=== PATIENT | female | born 1945 | race Hispanic/Latino ===

== ENCOUNTER 2018-01-25 01:19 | Inpatient (IN) | payer MEDICARE ==
[~2018-01-25] VITALS: Ht 154.9 cm; Wt 69.2 kg
[2018-01-25] VITALS (10 sets, daily range): BP systolic 93–141; BP diastolic 59–71
[~2018-01-25 01:19] MED LIST: AMLODIPINE BESYL5 MG PO; LEVOCETIRIZINE D5 MG PO
[2018-01-25] MEDS ORDERED: ONDANSETRON HCL 4 MG ORAL DISINTEGRATING TAB ONE (01:22)
[2018-01-25] MEDS ORDERED: MORPHINE SULFATE 2 MG/ML SYR IV STA ×2 (01:22→02:57)
[2018-01-25] MEDS ORDERED: ONDANSETRON HCL 4 MG ORAL DISINTEGRATING TAB PO ONE (01:30)
[2018-01-25] MEDS ORDERED: SODIUM CHLORIDE 0.9% 1000ML 1,000 ML IV ONE (01:45)
[2018-01-25 01:46] LABS: BASOPHILS # (AUTO) 0.1 (0.0-0.1); BASOPHILS % 0.7 % (0.0-1.0); EOSINOPHILS # (AUTO) 0.1 (0.0-0.4); EOSINOPHILS % 0.9 % (0.0-6.0); HEMATOCRIT 38.7 % (34.2-44.1); HEMOGLOBIN 12.8 g/dL (12.0-16.0); LYMPHOCYTES # (AUTO) 2.1 (1.0-3.2); LYMPHOCYTES % 15.8 % (18.0-39.1); MEAN CORPUSCULAR HEMOGLOBIN 28.1 pg (28-32); MEAN CORPUSCULAR HGB CONC 33.1 g/dL (31-35); MEAN CORPUSCULAR VOLUME 85.1 fL (81-99); MONOCYTES # (AUTO) 0.8 (0.2-0.8); NEUTROPHILS # (AUTO) 10.1 (2.1-6.9); NEUTROPHILS % 76.1 % (38.7-80.0); PLATELET COUNT 286 x10e3/uL (140-360); RED BLOOD COUNT 4.55 x10e6/uL (3.6-5.1); RED CELL DISTRIBUTION WIDTH 13.8 % (11.7-14.4)
[2018-01-25 01:50] LABS: CLARITY,URINE CLEAR (CLEAR); COLOR,URINE YELLOW (YELLOW)
[2018-01-25 01:51] LABS: BILIRUBIN,URINE NEGATIVE (NEGATIVE); KETONES,URINE NEGATIVE (NEGATIVE); LEUKOCYTE ESTERASE ,URINE 1+ (NEGATIVE); NITRITE,URINE NEGATIVE (NEGATIVE); PROTEIN,URINE DIPSTICK TRACE (NEGATIVE); URINE UROBILINOGEN 0.2 mg/dL (0.2 - 1)
[2018-01-25 01:54] LABS: RBC,URINE 0-5 /HPF (0-5)
[2018-01-25 01:55] LABS: BACTERIA,URINE RARE /HPF; EPITHELIAL CELLS,URINE FEW /LPF
[2018-01-25 02:04] LABS: ALANINE AMINOTRANSFERASE 18 IU/L (0-55); ALBUMIN 3.6 g/dL (3.5-5.0); ALBUMIN/GLOBULIN RATIO 0.8 (0.8-2.0); ALKALINE PHOSPHATASE 88 IU/L (40-150); AMYLASE 122 U/L (25-125); ANION GAP 15.3 mmol/L (8-16); BLOOD UREA NITROGEN 16 mg/dL (7-26); BUN/CREATININE RATIO 24 (6-25); CALCIUM 9.6 mg/dL (8.4-10.2); CARBON DIOXIDE 24 mmol/L (22-29); CHLORIDE 101 mmol/L (98-107); CREATININE, SERUM 0.68 mg/dL (0.57-1.11); EST GLOMERULAR FILTRATION RATE > 60 ML/MIN (60-); GLUCOSE 139 mg/dL (74-118); LIPASE 143 U/L (8-78); POTASSIUM 3.3 mmol/L (3.5-5.1); SODIUM 137 mmol/L (136-145)
[2018-01-25 02:11] LABS: CREATINE KINASE 35 IU/L (29-168)
[2018-01-25] MEDS ORDERED: SODIUM CHLORIDE 0.9% 50ML 50 ML ONE (02:13)
[2018-01-25] MEDS ORDERED: IOPAMIDOL 370 MG/ML 200 ML INFUS..BTL INJ ONE (02:14)
--- NOTE | 2018-01-25 02:52 | Diagnostic Imaging Report ---
EXAM: CT Abdomen and Pelvis WITH contrast INDICATION: Abdominal pain, vomiting COMPARISON: None. TECHNIQUE: Abdomen and pelvis were scanned utilizing a multidetector helical scanner from the lung base to the pubic symphysis after administration of IV contrast. Coronal and sagittal reformations were obtained. Routine protocol was performed. Scan was performed when during portal venous phase. IV CONTRAST: 100 mL of Isovue-300 ORAL CONTRAST: Water RADIATION DOSE: Total DLP: 452.32 mGy*cm Estimated effective dose: (DLP x 0.015 x size factor) mSv COMPLICATIONS: None FINDINGS: LINES and TUBES: None. LOWER THORAX: Unremarkable HEPATOBILIARY: No focal hepatic lesions. No biliary ductal dilation. GALLBLADDER: No radio-opaque stones or sludge. No wall thickening. SPLEEN: No splenomegaly. PANCREAS: No focal masses or ductal dilatation. ADRENALS: No adrenal nodules KIDNEYS/URETERS: Kidneys enhance symmetrically. Right-sided hydroureteronephrosis No cystic or solid mass lesions. Few small stones visualized in the region of the distal right ureter and right UVJ best seen on series 2, image 72 through 74. The largest stone is probably 3 mm in diameter GI TRACT: No abnormal distention, wall thickening, or evidence of bowel obstruction. Appendix is normal. PELVIC ORGANS/BLADDER: Unremarkable. LYMPH NODES: No lymphadenopathy. VESSELS: Unremarkable. PERITONEUM / RETROPERITONEUM: No free air or fluid. BONES: Unremarkable. SOFT TISSUES: Unremarkable. IMPRESSION: 1. Distal right ureteral and UVJ stones measuring 3 mm in diameter the largest results in mild hydroureteronephrosis 2. Otherwise, unremarkable study. Signed by: Dr. Gerardo Jeffery M.D. on 01/25/2018 2:48 AM
[2018-01-25] MEDS ORDERED: MORPHINE SULFATE 2 MG/ML SYR ONE (03:00)
[2018-01-25] MEDS ORDERED: ONDANSETRON HCL INJ 2 MG/ML VIAL IV PRN (03:00)
--- OUTSIDE RECORDS SUMMARY | 2018-01-25 03:10 | XMS REPORT ---
Author Author [facility] Address Unknown Phone Unavailable Care Team Providers Care Ledger Clerk Name Role Phone MELLY KATZ Unavailable Unavailable Problems This patient has no known problems. Allergies, Adverse Reactions, Alerts This patient has no known allergies or adverse reactions. Medications This patient has no known medications. Results Test Description Test Time Test Comments Text Results Atomic Results Result Comments CT ABDOMEN/PELVIS W [place] [address] Patient Name: ALEXANDRE SIDDIQUI MR #: [id number] : 1945 Age/Sex: 72/F Req #: [id number] Adm Physician: Ordered by: MELLY KATZ MD Report #: [id number] Location: ER Room/Bed: ___ Procedure: [id number] CT/CT ABDOMEN/PELVIS W Exam Date: 01/25/18 Exam Time: 223 REPORT STATUS: Signed EXAM: CT Abdomen and Pelvis WITH contrast INDICATION: Abdominal pain, vomiting COMPARISON: None. TECHNIQUE: Abdomen and pelvis were scanned utilizing a multidetector helical scanner from the lung base to the pubic symphysis after administration of IV contrast. Coronal and sagittal reformations were obtained. Routine protocol was performed. Scan was performed when during portal venous phase. IV CONTRAST: 100 mL of Isovue-300 ORAL CONTRAST: Water RADIATION DOSE: Total DLP: 452.32 mGy*cm Estimated effective dose: (DLP x 0.015 x size factor) mSv COMPLICATIONS: None FINDINGS: LINES and TUBES: None. LOWER THORAX: Unremarkable HEPATOBILIARY: No focal hepatic lesions. No biliary ductal dilation. GALLBLADDER: No radio-opaque stones or sludge. No wall thickening. SPLEEN: No splenomegaly. PANCREAS: No focal masses or ductal dilatation. ADRENALS: No adrenal nodules KIDNEYS/URETERS: Kidneys enhance symmetrically. Right-sided hydroureteronephrosis No cystic or solid mass lesions. Few small stones visualized in the region of the distal right ureter and right UVJ best seen on series 2, image 72 through 74. The largest stone is probably 3 mm in diameter GI TRACT: No abnormal distention, wall thickening, or evidence of bowel obstruction. Appendix is normal. PELVIC ORGANS/BLADDER: Unremarkable. LYMPH NODES: No lymphadenopathy. VESSELS: Unremarkable. PERITONEUM / RETROPERITONEUM: No free air or fluid. BONES: Unremarkable. SOFT TISSUES: Unremarkable. IMPRESSION: 1. Distal right ureteral and UVJ stones measuring 3 mm in diameter the largest results in mild hydroureteronephrosis 2. Otherwise, unremarkable study. Signed by: Dr. Gerardo Jeffery M.D. on 01/25/2018 2:48 AM Dictated By: GERARDO EDMOND MD 7 COPY TO: MELLY KATZ MD
[2018-01-25] MEDS ORDERED: ALENDRONATE SOD70 MG PO (03:14)
[2018-01-25] MEDS ORDERED: NEXIUM20 MG PO (03:15)
[2018-01-25] MEDS: CEFTRIAXONE SOD 1 GM VIAL IV SCH (03:25)
[2018-01-25] MEDS: SODIUM CHLORIDE 0.9% 1000ML 1,000 ML IV SCH ×3 (03:25→20:00)
[2018-01-25] MEDS: MORPHINE SULFATE 2 MG/ML SYR IV PRN ×2 (07:29→14:24)
[2018-01-25] MEDS: LORATADINE 10 MG TAB PO SCH (08:15)
[2018-01-25] MEDS: AMLODIPINE BESYLATE 5 MG TAB PO SCH (08:15)
[2018-01-25] MEDS ORDERED: PANTOPRAZOLE SOD 40 MG TABEC PO SCH (09:00)
[2018-01-25] MEDS ORDERED: NON-FORMULARY MEDICATION (Levocetirizine Dihydrochloride 5 MG) PO SCH (09:00)
[2018-01-25] MEDS ORDERED: POTASSIUM CHLORIDE 20 MEQ TAB CR PO NR (11:00)
[2018-01-25] MEDS ORDERED: TRAMADOL HCL 50 MG TAB PO PRN (17:30)
[2018-01-25] MEDS: TAMSULOSIN HCL 0.4 MG CAP PO SCH (20:29)
[2018-01-25] MEDS: GABAPENTIN 300 MG CAP PO SCH (20:29)
[2018-01-26] VITALS (7 sets, daily range): BP systolic 97–135; BP diastolic 56–67
[2018-01-26] MEDS: CEFTRIAXONE SOD 1 GM VIAL IV SCH (02:53)
[2018-01-26] MEDS: SODIUM CHLORIDE 0.9% 1000ML 1,000 ML IV SCH ×2 (05:06→17:06)
[2018-01-26 06:12] LABS: BASOPHILS # (AUTO) 0.1 (0.0-0.1); BASOPHILS % 0.5 % (0.0-1.0); EOSINOPHILS # (AUTO) 0.2 (0.0-0.4); EOSINOPHILS % 1.7 % (0.0-6.0); MEAN CORPUSCULAR HEMOGLOBIN 28.6 pg (28-32); MEAN CORPUSCULAR HGB CONC 33.3 g/dL (31-35); MEAN CORPUSCULAR VOLUME 85.7 fL (81-99); MONOCYTES # (AUTO) 0.8 (0.2-0.8); MONOCYTES % 8.1 % (4.4-11.3); NEUTROPHILS % 69.4 % (38.7-80.0); PLATELET COUNT 232 x10e3/uL (140-360); RED BLOOD COUNT 3.85 x10e6/uL (3.6-5.1); RED CELL DISTRIBUTION WIDTH 14.2 % (11.7-14.4)
[2018-01-26 06:32] LABS: ALANINE AMINOTRANSFERASE 13 IU/L (0-55); ALBUMIN 2.7 g/dL (3.5-5.0); ALBUMIN/GLOBULIN RATIO 0.8 (0.8-2.0); ALKALINE PHOSPHATASE 54 IU/L (40-150); ANION GAP 9.4 mmol/L (8-16); BLOOD UREA NITROGEN 13 mg/dL (7-26); BUN/CREATININE RATIO 18 (6-25); CALCIUM 7.8 mg/dL (8.4-10.2); CARBON DIOXIDE 25 mmol/L (22-29); CHLORIDE 106 mmol/L (98-107); CREATININE, SERUM 0.73 mg/dL (0.57-1.11); EST GLOMERULAR FILTRATION RATE > 60 ML/MIN (60-); GLUCOSE 105 mg/dL (74-118); POTASSIUM 3.4 mmol/L (3.5-5.1); SODIUM 137 mmol/L (136-145)
[2018-01-26 06:34] LABS: AMYLASE 58 U/L (25-125); LIPASE 14 U/L (8-78)
[2018-01-26] MEDS: AMLODIPINE BESYLATE 5 MG TAB PO SCH (07:29)
[2018-01-26] MEDS: GABAPENTIN 300 MG CAP PO SCH ×3 (08:30→20:06)
[2018-01-26] MEDS: LORATADINE 10 MG TAB PO SCH (08:30)
[2018-01-26] MEDS: MORPHINE SULFATE 2 MG/ML SYR IV PRN ×2 (10:45→16:38)
[2018-01-26] MEDS ORDERED: POTASSIUM CHLORIDE 20 MEQ TAB CR PO NR (14:45)
[2018-01-26] MEDS: TAMSULOSIN HCL 0.4 MG CAP PO SCH (20:06)
--- NOTE | 2018-01-26 22:28 | Consultation ---
DATE OF CONSULTATION: January 25, 2018 REASON FOR CONSULTATION: Right flank pain, right lower quadrant pain, bladder spasms, frequency and urgency. HISTORY: A 72-year-old female who started 24 hours prior to admission having right flank pain with vomiting and supposedly chills and fever. The patient stated that this started suddenly and she did not notice any evidence of any hematuria or foul-smelling urine. She stated that she had travelled outside of the country to [facility] and had returned within the last week. PAST MEDICAL HISTORY: No surgery. ALLERGIES: NO KNOWN ALLERGIES TO MEDICATION. SOCIAL HISTORY: She does not use any tobacco. She is not , but has had 2 children in the past. CT SCAN: The CT scan shows mild hydroureter all the way down to the ureterovesical junction where there is a 3-mm stone. LAB WORK: Urine is essentially negative with microscopic hematuria and pyuria. IMPRESSION: Right distal ureteral calculi. RECOMMENDATIONS: Patient continues to use IV drugs. Today, states that her pain is extremely severe. She has only 3-mm stone. She should be home already, but her symptomatology is more than I would have expected with just a little stone. She had been on Flomax, gabapentin, tramadol, Rocephin and morphine. Currently, I have told the patient that with this amount of pain that has continued despite of appropriate medication, we should do a cystoscopy tomorrow together with a possible ureteroscopy and stone extraction and placement of double J. I discussed all these with her in presence of a nurse. We will be scheduling her tomorrow and we will see what we can do as far as removing the stone or placing a double J. Job#: [id number]
[2018-01-27] MEDS: SODIUM CHLORIDE 0.9% 1000ML 1,000 ML IV SCH ×2 (00:10→09:19)
[2018-01-27] MEDS: CEFTRIAXONE SOD 1 GM VIAL IV SCH ×2 (02:48→12:00)
[2018-01-27 04:50] VITALS: BP 114/55
[2018-01-27 08:00] VITALS: BP 128/70
[2018-01-27] MEDS: AMLODIPINE BESYLATE 5 MG TAB PO SCH (09:00)
[2018-01-27] MEDS: GABAPENTIN 300 MG CAP PO SCH ×2 (09:00→17:00)
[2018-01-27] MEDS: LORATADINE 10 MG TAB PO SCH (09:00)
[2018-01-27] MEDS ORDERED: IOPAMIDOL 610MG/1ML 300 MG/ML VIAL IV ONE (09:37)
[2018-01-27] MEDS ORDERED: DEXTROSE 5%/0.45% SOD CHL 1,000 ML IV ONE ×2 (10:45→16:30)
--- NOTE | 2018-01-27 11:51 | Operative Report ---
DATE OF PROCEDURE: January 27, 2018 PREOPERATIVE DIAGNOSES 1. Right hydronephrosis. 2. Urinary tract infection. 3. Stone. POSTOPERATIVE DIAGNOSES 1. Hydronephrosis, right side. 2. Distal right ureteral obstruction due to fragments of stones with a ureteral ring inflammation. OPERATION PERFORMED: Cystoscopy, retrograde pyelograms, flexible and rigid ureteroscopy, and placement of right double J. ANESTHESIA: Staff. Anesthesia general. FINDINGS: The patient had a cystocele, normal cervix, normal bladder. Ureteral orifices in normal position and normal shape bilaterally. Minimal efflux out of the right side. Retrograde pyelograms showed hydro on the right, none on the left. The patient has a ring with multiple small concretions within that ring just at the level of the ureterovesical junction on visual ureteroscopy. Visual ureteroscopy flexible of the kidneys reveals no stones but does show matrix mucus and small particles of mucus or some crystals. Otherwise, no tumors were seen, and no stones per se were seen. PROCEDURE: With the patient under satisfactory general anesthesia, the patient was placed in the supine position on the operating table. Legs were placed on stirrups. Genitalia were then prepped with Betadine soap and solution and draped in the usual manner. A #22-Japanese cystourethroscope was passed into the bladder. The bladder was inspected. Retrograde pyelogram was done with a #8 cone-tipped ureteral catheter injecting contrast media retrograde up to both kidneys. Findings as dictated above. Guidewire was introduced all the way up to the right kidney. Rigid ureteroscopy was performed. Visualization of the distal ureter was seen, and findings are dictated above. There was a concentric ring just at the level of the UVJ with some crystal formation in it and some mucus, but no stones were seen. After this was done, this was removed and the flexible ureteroscope was introduced over the guidewire. The guidewire was then removed, and the flexible ureteroscope was used to see the entire ureter. Tortuosity of the proximal ureter was identified, probably due to hydroureteronephrosis. Inside the kidney, there was hydronephrosis of the infundibulum, but all the calices were easily seen, and no stones were visualized. At this point, the guidewire was introduced all the way up to the kidney. Instruments were removed, and a 6-Japanese [facility] double J was placed on, coil in the renal pelvis. Guidewire was removed, coil in the bladder. The sleeve was used to disengage the pusher and leave the double J in place. At this point, the patient was taken to the recovery room in satisfactory condition. Job#: [id number]
[2018-01-27 12:00] VITALS: BP 139/68
[2018-01-27] MEDS ORDERED: MIDAZOLAM HCL 2 MG/2 ML VIAL ONE (14:43)
[2018-01-27] MEDS ORDERED: FENTANYL CITRATE/PF 100MCG/2 ML INJ ONE (14:43)
[2018-01-27 16:00] VITALS: BP_SYST 102; BP_SYST 139; BP_DIAS 56; BP_DIAS 68
[2018-01-27] MEDS ORDERED: LIDOCAINE HCL 2% LOCAL INJ 5 ML SDV VIAL INJ ONE (17:41)
[2018-01-27] MEDS ORDERED: PROPOFOL IV EMULSION 10 MG/ML 20 ML VIAL ONE (17:41)
[2018-01-27] MEDS ORDERED: ONDANSETRON HCL INJ 2 MG/ML VIAL ONE (17:41)
[2018-01-27] MEDS ORDERED: DEXAMETHASONE SOD PHOS INJ 4 MG/ML VIAL ONE (17:41)
[2018-01-27] MEDS ORDERED: SEVOFLURANE INHAL SOLN 250 ML PEN BTL ONE (17:41)
[2018-01-27 20:00] VITALS: BP 106/57
[2018-01-27] MEDS ORDERED: TAMSULOSIN HCL 0.4 MG CAP PO SCH (21:00)
[2018-01-28] VITALS: BP 106/55
[2018-01-28 04:00] VITALS: BP 133/63
[2018-01-28 08:00] VITALS: BP 119/64
[2018-01-28] MEDS: LORATADINE 10 MG TAB PO SCH (08:00)
[2018-01-28] MEDS: AMLODIPINE BESYLATE 5 MG TAB PO SCH (08:00)
[2018-01-28] MEDS: GABAPENTIN 300 MG CAP PO SCH (08:00)
--- NOTE | 2018-01-28 10:18 | Discharge Summary ---
PRIMARY CARE DOCTOR: Dr. Dayday Trinidad FINAL DIAGNOSIS: Right-sided nephrolithiasis with hydronephrosis. SECONDARY DIAGNOSES 1. Culture-negative urinary tract infection. 2. Hypertension. CONSULTANTS: Dr. Primitivo Banerjee, urology. PROCEDURES/STUDIES PERFORMED 1. Cystoscopy with stent placement. 2. Abdominal computerized tomography. HISTORY: Per [facility] and [facility]. HOSPITAL COURSE: Patient was put on IV Rocephin. Her urine culture came back negative. Patient was seen by urology. Flomax was started. Patient underwent cystoscopy with stent placement. Currently, she is feeling better. Patient will follow up with Dr. Banerjee in 2 weeks to remove the stent. She will go home on Flomax and Cipro. Patient was seen and examined today. It took 32 minutes total to discharge this patient today. CONDITION ON DISCHARGE: Stable. DISCHARGE MEDICATIONS: Please see medication reconciliation form. AMPARO NARANJO M.D. Job#: [id number] RI cc:DAYDAY TRINIDAD MD
[2018-01-28] MEDS: SODIUM CHLORIDE 0.9% 1000ML 1,000 ML IV SCH (10:19)
[2018-01-28] MEDS ORDERED: FLOMAX0.4 MG PO (10:29)
[2018-01-28] MEDS ORDERED: CIPRO500 MG PO (10:29)
[2018-01-28] MEDS ORDERED: ULTRAM 50MG50 MG PO (10:29)
[2018-01-28 12:00] VITALS: BP 101/56
[2018-01-28] MEDS: CEFTRIAXONE SOD 1 GM VIAL IV SCH (12:00)
== END 2018-01-28 15:14 | disposition home or self-care (01) | DRG 694 ==
LOC: ER 01:19 → ERHOLD 03:08 → MED/SURG2 03:20
PROVIDERS: ADMIT Internal Medicine; ATTEND Internal Medicine
PROC: 0T768DZ Dilation of Right Ureter with Intraluminal Device, Via Natural or Artificial Opening Endoscopic (ICD-10-PCS; principal; 2018-01-28)
PROC: BT141ZZ Fluoroscopy of Kidneys, Ureters and Bladder using Low Osmolar Contrast (ICD-10-PCS; 2018-01-28)
DX: N13.2 Hydronephrosis with renal and ureteral calculous obstruction (principal); N20.1 Calculus of ureter; N39.0 Urinary tract infection, site not specified; N32.89 Other specified disorders of bladder; E87.6 Hypokalemia
CPT/HCPCS: 36415; 74177; 74420; 80053; 81001; 82150; 82550; 82553; 82948; 83690; 83735; 84484; 85025; 87086; 96374; 99284; C2625; J0696; J1100; J2001; J2250; J2270; J2405; J7030; Q9967

== ENCOUNTER 2022-07-22 13:34 | Inpatient (IN) | payer MEDICARE, OTHER ==
[~2022-07-22] VITALS: Ht 154.9 cm; Wt 68.9 kg
[~2022-07-22 13:34] MED LIST changes: +ALENDRONATE SOD70 MG PO; +CIPRO500 MG PO; +FLOMAX0.4 MG PO; +NEXIUM20 MG PO; +ULTRAM 50MG50 MG PO
[2022-07-22] MEDS ORDERED: ALBUTEROL/IPRATROPIUM 3 ML NEB NEB STA (14:29)
[2022-07-22 14:45] LABS: BASOPHILS # (AUTO) 0.1 (0.0-0.1); BASOPHILS % 0.4 % (0.0-1.0); EOSINOPHILS % 0.4 % (0.0-6.0); HEMATOCRIT 40.5 % (34.2-44.1); HEMOGLOBIN 12.6 g/dL (12.0-16.0); MEAN CORPUSCULAR HEMOGLOBIN 27.5 pg (28-32); MEAN CORPUSCULAR HGB CONC 31.1 g/dL (31-35); MEAN CORPUSCULAR VOLUME 88.2 fL (81-99); MONOCYTES # (AUTO) 0.5 (0.2-0.8); MONOCYTES % 4.3 % (4.4-11.3); NEUTROPHILS # (AUTO) 8.6 (2.1-6.9); NEUTROPHILS % 76.4 % (38.7-80.0); PLATELET COUNT 279 x10e3/uL (140-360); RED BLOOD COUNT 4.59 x10e6/uL (3.6-5.1); RED CELL DISTRIBUTION WIDTH 13.2 % (11.7-14.4)
[2022-07-22 15:05] LABS: ALBUMIN 4.1 g/dL (3.5-5.0); ALBUMIN/GLOBULIN RATIO 0.9 (0.8-2.0); ANION GAP 15.1 mmol/L (8-16); CALCIUM 8.9 mg/dL (8.4-10.2); POTASSIUM 3.1 mmol/L (3.5-5.1)
[2022-07-22 15:32] LABS: CREATININE, SERUM 0.64 mg/dL (0.57-1.11)
[2022-07-22 15:40] LABS: CREATINE KINASE MB 1.1 ng/mL (0-5.0)
[2022-07-22] MEDS ORDERED: ALBUTEROL/IPRATROPIUM 3 ML NEB NEB ONE ×2 (16:00→16:15)
[2022-07-22] MEDS: METHYLPREDNISOLONE SOD SUCC 40 MG/ML VIAL 1ML IV SCH (16:33)
[2022-07-22 18:24] VITALS: BP 107/57
[2022-07-22 18:35] VITALS: BP 107/57
[2022-07-22 18:42] VITALS: BP 107/57
[2022-07-22] MEDS ORDERED: CEFDINIR300 MG PO (18:45)
[2022-07-22] MEDS ORDERED: BENZONATATE100 MG PO (18:45)
[2022-07-22] MEDS ORDERED: PREDNISONE20 MG PO (18:46)
[2022-07-22] MEDS ORDERED: BROMPHENIR-PSE118 ML PO (18:49)
[2022-07-22 20:00] VITALS: BP 116/55
[2022-07-22] MEDS ORDERED: BENZONATATE 100 MG CAP PO PRN ×2 (22:15)
[2022-07-23] VITALS (7 sets, daily range): BP systolic 104–122; BP diastolic 51–64
[2022-07-23] MEDS: METHYLPREDNISOLONE SOD SUCC 40 MG/ML VIAL 1ML IV SCH ×3 (00:38→16:57)
[2022-07-23] MEDS: BENZONATATE 100 MG CAP PO SCH ×5 (00:38→23:16)
[2022-07-23 01:24] LABS: CREATINE KINASE 21 IU/L (29-168)
[2022-07-23 06:16] LABS: BASOPHILS % 0.1 % (0.0-1.0); HEMATOCRIT 36.2 % (34.2-44.1); HEMOGLOBIN 11.9 g/dL (12.0-16.0); LYMPHOCYTES # (AUTO) 1.4 (1.0-3.2); LYMPHOCYTES % 19.9 % (18.0-39.1); MEAN CORPUSCULAR HEMOGLOBIN 27.5 pg (28-32); MEAN CORPUSCULAR HGB CONC 32.9 g/dL (31-35); MEAN CORPUSCULAR VOLUME 83.8 fL (81-99); MONOCYTES # (AUTO) 0.1 (0.2-0.8); NEUTROPHILS # (AUTO) 5.4 (2.1-6.9); NEUTROPHILS % 78.4 % (38.7-80.0); PLATELET COUNT 276 x10e3/uL (140-360); RED BLOOD COUNT 4.32 x10e6/uL (3.6-5.1); RED CELL DISTRIBUTION WIDTH 13.2 % (11.7-14.4)
[2022-07-23 06:38] LABS: ALBUMIN 3.7 g/dL (3.5-5.0); ALBUMIN/GLOBULIN RATIO 0.9 (0.8-2.0); ANION GAP 14.5 mmol/L (8-16); CALCIUM 8.8 mg/dL (8.4-10.2); CREATININE, SERUM 0.59 mg/dL (0.57-1.11); POTASSIUM 3.5 mmol/L (3.5-5.1)
[2022-07-23] MEDS ORDERED: ONDANSETRON HCL INJ 2MG/ML 2ML 2 MG/ML VIAL IV PRN (08:30)
[2022-07-23] MEDS ORDERED: AZITHROMYCIN 250 MG TAB PO ONE (09:15)
[2022-07-23] MEDS ORDERED: IOPAMIDOL 370 MG/ML 100 ML INFUS..BTL INJ ONE (09:25)
[2022-07-23] MEDS: AMLODIPINE BESYLATE 5 MG TAB PO SCH (09:47)
[2022-07-23] MEDS: ACETAMINOPHEN 325 MG TAB PO PRN ×3 (09:48→23:17)
[2022-07-23] MEDS ORDERED: SODIUM CHLORIDE 0.9% 500ML 500 ML ONE (09:55)
[2022-07-23 10:17] LABS: CREATINE KINASE 15 IU/L (29-168)
[2022-07-23] MEDS: ALBUTEROL/IPRATROPIUM 3 ML NEB NEB SCH ×4 (10:50→23:10)
[2022-07-23] MEDS: LORATADINE 10 MG TAB PO SCH (12:16)
[2022-07-23 18:18] LABS: CREATINE KINASE 16 IU/L (29-168)
[2022-07-23] MEDS: BUDESONIDE/FORMOTEROL 160/4.5MCG INHALER INH SCH (19:25)
[2022-07-24] VITALS (8 sets, daily range): BP systolic 108–117; BP diastolic 49–64
[2022-07-24] MEDS: ALBUTEROL/IPRATROPIUM 3 ML NEB NEB SCH ×2 (02:42→07:20)
[2022-07-24] MEDS ORDERED: ALENDRONATE SODIUM 70 MG TAB PO SCH (06:00)
[2022-07-24] MEDS: METHYLPREDNISOLONE SOD SUCC 40 MG/ML VIAL 1ML IV SCH (06:38)
[2022-07-24] MEDS: BENZONATATE 100 MG CAP PO SCH ×4 (06:39→21:59)
[2022-07-24] MEDS: ACETAMINOPHEN 325 MG TAB PO PRN ×2 (06:40→22:00)
[2022-07-24] MEDS: BUDESONIDE/FORMOTEROL 160/4.5MCG INHALER INH SCH ×2 (07:35→18:33)
[2022-07-24] MEDS ORDERED: ALBUTEROL SULFATE HFA 8GM INHALATION AEROSOL INH PRN ×2 (08:15→10:45)
[2022-07-24] MEDS: AMLODIPINE BESYLATE 5 MG TAB PO SCH (08:33)
[2022-07-24] MEDS: LORATADINE 10 MG TAB PO SCH (08:33)
[2022-07-24] MEDS ORDERED: ALBUTEROL SULF 0.083% NEB SOLN 3 ML NEB NEB PRN (08:45)
[2022-07-24] MEDS ORDERED: NON-FORMULARY MEDICATION (Levocetirizine Dihydrochloride 5 MG) PO SCH (09:00)
[2022-07-24] MEDS ORDERED: BISACODYL 5 MG TAB EC PO ONE (12:00)
[2022-07-24] MEDS: DOCUSATE SODIUM 100 MG CAP PO SCH (16:01)
[2022-07-24] MEDS ORDERED: BUDESONIDE/FORMOTEROL 160/4.5MCG INHALER INH SCH (19:00)
[2022-07-25] VITALS: BP 101/54
[2022-07-25 03:47] VITALS: BP 101/54
[2022-07-25 04:00] VITALS: BP 116/59
[2022-07-25] MEDS: BENZONATATE 100 MG CAP PO SCH ×2 (05:57→11:00)
[2022-07-25] MEDS: ACETAMINOPHEN 325 MG TAB PO PRN (05:57)
[2022-07-25] MEDS: BUDESONIDE/FORMOTEROL 160/4.5MCG INHALER INH SCH ×2 (07:20→08:29)
[2022-07-25 08:00] VITALS: BP 122/60
[2022-07-25 08:35] VITALS: BP 122/60
[2022-07-25] MEDS: DOCUSATE SODIUM 100 MG CAP PO SCH ×2 (09:00→10:00)
[2022-07-25] MEDS ORDERED: METHYLPREDNISOLONE SOD SUCC 40 MG/ML VIAL 1ML IV SCH (09:00)
[2022-07-25] MEDS ORDERED: AZITHROMYCIN 250 MG TAB PO SCH (10:00)
[2022-07-25] MEDS: AMLODIPINE BESYLATE 5 MG TAB PO SCH (10:00)
[2022-07-25] MEDS ORDERED: PROVENTIL HFA6.7 GM INH (10:54)
[2022-07-25] MEDS ORDERED: LORATADINE10 MG PO (10:54)
[2022-07-25] MEDS ORDERED: ONDANSETRON HCL 4 MG ORAL DISINTEGRATING TAB PO PRN (11:45)
[2022-07-25 12:07] VITALS: BP 118/53
[2022-07-25] MEDS ORDERED: LORATADINE 10 MG TAB PO SCH (21:00)
== END 2022-07-25 13:31 | disposition home or self-care (01) | DRG 203 ==
LOC: ER 13:54 → ERHOLD 16:12 → MED/SURG3 17:41 → OBSVTOIN 07-24 09:01
PROVIDERS: ADMIT Internal Medicine; ATTEND Internal Medicine
DX: J20.9 Acute bronchitis, unspecified (principal); I10 Essential (primary) hypertension; E03.9 Hypothyroidism, unspecified; D64.9 Anemia, unspecified; M19.90 Unspecified osteoarthritis, unspecified site; K59.00 Constipation, unspecified; G44.40 Drug-induced headache, not elsewhere classified, not intractable; T48.6X5A Adverse effect of antiasthmatics, initial encounter; Y92.230 Patient room in hospital as the place of occurrence of the external cause; Z20.822 Contact with and (suspected) exposure to COVID-19
CPT/HCPCS: 36415; 70450; 71260; 80053; 82550; 82553; 83880; 84443; 84484; 85025; 87400; 93005; 94640; 94664; 94799; 99284; G0378; J0456; J2920; J7040; J7050; Q9967